=== PATIENT | male | born 1965 ===

== ENCOUNTER 2017-04-03 17:05 | Emergency (ER) | payer OTHER ==
[2017-04-03 17:13] VITALS: BP 136/87; PULSE 65; RESP 16; O2SAT 100
[2017-04-03 17:15] VITALS: TEMP 97.9
[2017-04-03] MEDS ORDERED: Sodium Chloride 0.9% 1,000 ML IV STA (18:08)
--- NOTE | 2017-04-03 18:24 | ED PDOC ---
HPI: Abdomen Time Seen by Provider: 04/03/17 18:02 Chief Complaint (Nursing): Abdominal Pain Chief Complaint (Provider): abdominal pain History Per: Patient History/Exam Limitations: no limitations Onset/Duration Of Symptoms: Hrs (2), Sudden Onset Current Symptoms Are (Timing): Better Severity: Severe Location Of Pain/Discomfort: RLQ Quality Of Discomfort: Sharp Associated Symptoms: denies: Nausea, Vomiting, Diarrhea, Loss Of Appetite, Urinary Symptoms Exacerbating Factors: None Alleviating Factors: None Last Bowel Movement: Today Additional Complaint(s): 51yo male c/o RLQ pain x several hours, severe, sharp, radiating to testicle. Denies urinary symptoms. Pain has improved since arrival. Past Medical History Reviewed: Historical Data, Nursing Documentation, Vital Signs Vital Signs: Last Vital Signs Temp 97.9 F 04/03/17 17:08 Pulse 65 04/03/17 17:08 Resp 16 04/03/17 17:08 BP 136/87 04/03/17 17:08 Pulse Ox 100 04/03/17 18:24 - Medical History PMH: Kidney Stones, Chronic Kidney Disease - Surgical History Other surgeries: kidney stone surgery in past - Family History Family History: States: Unknown Family Hx - Living Arrangements Living Arrangements: With Family - Social History Current smoker - smoking cessation education provided: No - Allergies Allergies/Adverse Reactions: Allergies Allergy/AdvReac Type Severity Reaction Status Date / Time No Known Allergies Allergy Verified 04/03/17 17:14 Review of Systems ROS Statement: Except As Marked, All Systems Reviewed And Found Negative Constitutional: Negative for: Fever, Chills Cardiovascular: Negative for: Chest Pain, Palpitations Respiratory: Negative for: Cough, Shortness of Breath Gastrointestinal: Positive for: Abdominal Pain. Negative for: Nausea, Vomiting Genitourinary Male: Negative for: Dysuria, Frequency Musculoskeletal: Negative for: Neck Pain, Shoulder Pain Skin: Negative for: Rash, Lesions, Jaundice Neurological: Negative for: Weakness, Numbness Physical Exam - Reviewed Nursing Documentation Reviewed: Yes Vital Signs Reviewed: Yes - Physical Exam Appears: Positive for: Well, Non-toxic, No Acute Distress Head Exam: Positive for: ATRAUMATIC, NORMAL INSPECTION, NORMOCEPHALIC Skin: Positive for: Normal Color, Warm, DRY Eye Exam: Positive for: EOMI, Normal appearance, PERRL Neck: Positive for: Normal, Painless ROM Cardiovascular/Chest: Positive for: Regular Rate, Rhythm Respiratory: Positive for: CNT, Normal Breath Sounds Gastrointestinal/Abdominal: Positive for: Bowel Sounds, Soft. Negative for: Tenderness (RLQ) Back: Positive for: R CVA Tenderness. Negative for: Vertebral Tenderness, Muscle Spasm Extremity: Positive for: Normal ROM Neurologic/Psych: Positive for: Alert, Oriented. Negative for: Motor/Sensory Deficits - ECG O2 Sat by Pulse Oximetry: 100 Medical Decision Making Medical Decision Making: workup for sudden onset RLQ pain initiated w labwork, IVF and ct abd/pelv endorse Dr Moreno 7pm pending results/re-eval/dispo Disposition - Clinical Impression Clinical Impression: Abdominal pain - Patient ED Disposition Is Patient to be Admitted: Transfer of Care - Disposition Disposition: Transfer of Care Disposition Time: 18:55 Condition: STABLE Forms: [facility] [facility] (Spanish) Patient Signed Over To: González Moreno
[2017-04-03 19:11] LABS: BASO # 0.1 K/uL (0.0-0.2); BASO % 0.8 % (0.0-2.0); EOS # 0.1 K/uL (0.0-0.7); EOS % 1.1 % (0.0-4.0); HEMOGLOBIN 12.9 g/dL (12.0-18.0); LYMPH # 2.1 K/uL (1.0-4.3); LYMPH % 31.3 % (20.0-40.0); MEAN CELL VOLUME 91.1 fl (80.0-94.0); MEAN CORPUSCULAR HEMOGLOBIN 29.4 pg (27.0-31.0); MEAN CORPUSCULAR HGB CONC 32.2 g/dL (33.0-37.0); MEAN PLATELET VOLUME 9.3 fl (7.2-11.7); MONO # 0.5 K/uL (0.0-0.8); MONO % 7.2 % (0.0-10.0); NEUT # 4.1 K/uL (1.8-7.0); NEUT % 59.6 % (50.0-75.0); RBC 4.41 Mil/uL (4.40-5.90); RED CELL DISTRIBUTION WIDTH 13.4 % (11.5-14.5); WHITE BLOOD COUNT 6.8 K/uL (4.8-10.8)
[2017-04-03 19:37] LABS: ALB/GLOB RATIO 1.3 (1.0-2.1); ALBUMIN 4.4 g/dL (3.5-5.0); ALT/SGPT 39 U/L (21-72); AST/SGOT 33 U/L (17-59); BLOOD UREA NITROGEN 17 mg/dl (9-20); CALCIUM 9.7 mg/dL (8.4-10.2); GFR AFRICAN-AMERICAN > 60; GFR NON-AFRICAN AMERICAN > 60
--- NOTE | 2017-04-03 20:10 | ED PDOC ---
- Laboratory Results Result Diagrams: 04/03/17 18:59 04/03/17 18:59 - ECG O2 Sat by Pulse Oximetry: 100 Medical Decision Making Medical Decision Making: Time: 1899 --Patient was endorsed to provider by Dr. Matthew Magallon III. Pending CT results and re-evaluation. Time: 1936 --CT ABD & pelvis FINDINGS: Lower thorax: No pulmonary airspace consolidation or pleural fluid collection in the imaged portion of the thorax. ABDOMEN: Liver: No acute findings. Gallbladder and bile ducts: No acute findings. No radiopaque gallstones. Pancreas: No acute findings. Spleen: No acute findings. Adrenals: No acute findings. Kidneys and ureters: 4 x 5 x 4 mm right UVJ calculus. [id number] dilation of the right renal collecting system and ureter. Nonobstructing calculi in both renal collecting systems. 4 x 3 x 3.3 cm lesion in the left kidney upper pole that is predominantly fluid attenuation with a prominent soft tissue rim but also contains a small amount of macroscopic fat. Mild fat stranding surrounding the left renal lesion. Stomach and bowel: No evident acute abnormality. Appendix: Normal appendix. PELVIS: Bladder: Aside from the right UVJ calculus, the bladder is normal in appearance. Reproductive: No evident acute abnormality of the imaged structures. ABDOMEN and PELVIS: Intraperitoneal space: No free intraperitoneal fluid or air. Bones/joints: No acute findings. Soft tissues: No acute findings. Vasculature: No acute findings. No abdominal aortic aneurysm. Lymph nodes: No acute findings. IMPRESSION: 1. Obstructing 5 mm right UVJ calculus with associated mild to moderate hydronephrosis. 2. 4 cm left renal lesion as described above, incompletely characterized. Differential diagnosis includes but is not limited to a complex cyst, an angiomyolipoma with evolving intralesional subacute hemorrhage, and an abscess (less likely). Follow up per institution protocol. 3. Nonobstructing calculi in both renal collecting systems ____ Time: 2029 --Spoke with Dr. Trejo, stated to offer choice of admission for potential stenting or to discharge with pain meds, flomax, NSAID, and ABx and to strain urine. Patient states he feels comfortable going home and trying to pass stone on its own. Advised patient to return to the ER if the pain worsens despite NSAID and vicodin or if fevers develop or other concerning symptoms.. 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 Patient states that he would prefer to followup with his own urologist, Dr. Gonzalez of [facility], copies of all results given to patient. Time: 2044 --Upon provider reevaluation, patient is feeling better, medically stable and requires no further treatment in the ED at this time. Patient will be discharged home with Rx for Macrobid 100mg, Vicodin 300mg, Motrin 600mg and Flomax 0.4mg. Counseling was provided and all questions were answered regarding diagnosis and need for follow up with urology. There is agreement to discharge plan. Return if symptoms persist or worsen. Clinical Impression: Kidney Stone Scribe Attestation: Documented by Latisha Bustillos, acting as a scribe for González Moreno MD. Provider Scribe Attestation: All medical record entries made by the Scribe were at my direction and personally dictated by me. I have reviewed the chart and agree that the record accurately reflects my personal performance of the history, physical exam, medical decision making, and the department course for this patient. I have also personally directed, reviewed, and agree with the discharge instructions and disposition. Disposition - Clinical Impression Clinical Impression: Kidney stone - POA Present On Arrival: None - Disposition Referrals: Michel Trejo MD [Medical Doctor] - Disposition: Routine/Home Disposition Time: 20:45 Condition: IMPROVED Prescriptions: Acetaminophen/Hydrocodone Bi [Vicodin 300 mg-5 mg] 1 tab PO Q8 #12 tab Ibuprofen [Motrin Tab] 600 mg PO Q6 #30 tab Nitrofurantoin Macrocrystals [Macrobid] 100 mg PO BID 5 Days cap Tamsulosin [Flomax] 0.4 mg PO BID 14 Days cap Instructions: Hydrocodone/Acetaminophen (By mouth), Ibuprofen (By mouth), Tamsulosin (By mouth), Kidney Stones (ED), Narcotic Pain Management (ED), How to Strain Your Urine (ED) Forms: [employer] (Slovak), [facility] ED School/Work Excuse Print Language: LATVIAN
[2017-04-03 21:05] LABS: URINE BILIRUBIN NEGATIVE (NEGATIVE); URINE BLOOD SMALL (NEGATIVE); URINE CLARITY SLIGHTY-CLOUDY (Clear); URINE COLOR YELLOW (YELLOW); URINE GLUCOSE (UA) NEG (Normal); URINE LEUKOCYTE ESTERASE NEG Leu/uL (Negative); URINE NITRATE NEGATIVE (NEGATIVE); URINE PROTEIN NEGATIVE (NEGATIVE); URINE UROBILINOGEN 0.2-1.0 mg/dL (0.2-1.0)
--- NOTE | 2017-04-04 09:04 | CT ---
PROCEDURE: CT Abdomen and Pelvis without intravenous contrast HISTORY: sudden onset RLQ pain COMPARISON: None. TECHNIQUE: Contiguous images were obtained from the domes of the diaphragms to the upper thighs without the administration of intravenous contrast. Oral contrast was not administered. Radiation dose: Total exam DLP = 580.1 mGy-cm. This CT exam was performed using one or more of the following dose reduction techniques: Automated exposure control, adjustment of the mA and/or kV according to patient size, and/or use of iterative reconstruction technique. FINDINGS: LOWER THORAX: Unremarkable. LIVER: Unremarkable. No gross lesion or ductal dilatation. GALLBLADDER AND BILE DUCTS: Unremarkable. PANCREAS: Unremarkable. No gross lesion or ductal dilatation. SPLEEN: Unremarkable. ADRENALS: Unremarkable. No mass. KIDNEYS AND URETERS: 5 mm calculus lodged in the right ureterovesicular junction causing mild hydroureteronephrosis. Additional bilateral nonobstructive renal calculi. Left upper pole 3.4 cm fluid attenuating structure with soft tissue rim and focal punctate areas of macroscopic fat. No solid mass. VASCULATURE: Unremarkable. No aortic aneurysm. BOWEL: Unremarkable. No obstruction. No gross mural thickening. APPENDIX: Unremarkable. Normal appendix. PERITONEUM: Unremarkable. No free fluid. No free air. LYMPH NODES: Unremarkable. No enlarged lymph nodes. BLADDER: Unremarkable. REPRODUCTIVE: Unremarkable. BONES: Degenerative changes. No acute fracture. OTHER FINDINGS: None. IMPRESSION: Right ureterovesicular junction 5 mm calculus causing mild hydroureteronephrosis. Additional bilateral nonobstructive renal calculi. Nonspecific 3.4 cm left upper pole fluid attenuating structure with soft tissue rim and focal areas of macroscopic fat. Contrast-enhanced MRI ( "renal protocol") can be obtained for further evaluation as clinically warranted.
== END 2017-04-03 21:25 | disposition home or self-care (01) ==
LOC: H.ER 17:05
DX: N13.2 Hydronephrosis with renal and ureteral calculous obstruction (principal)
CPT/HCPCS: 74176; 80053; 81003; 85025; 96360; 99283; J7040